=== PATIENT | female | born 1955 | race Caucasian/White ===

== ENCOUNTER 2025-02-28 13:43 | Outpatient (REF) | payer OTHER, SELFPAY ==
[2025-02-28 17:37] LABS: MANUAL DIFF FLAG NO
[2025-02-28 17:48] LABS: Hematocrit 41.4 % (37.0-47.0); Hemoglobin 13.8 g/dl (12.0-16.0); Imm Gran Abs Auto 0.04 X10*3/uL (0.00-0.03); Imm Gran Pct Auto 0.4 % (0.0-0.4); Lymphocytes Absolute Auto 2.1 X10*3/uL (1.2-4.9); Mean Corpuscular HGB Conc 33.3 g/dl (31.0-35.0); Mean Corpuscular Hemoglobin 30.9 pg (27.0-33.0); Mean Corpuscular Volume 92.6 fL (80.0-98.0); NRBC Abs Auto 0.000 X10*3/uL (0.0-0.012); NRBC Pct Auto 0.0 /100WBC (0.0-0.2); Platelet Count 319 X10*3/uL (160-400); Red Blood Count 4.47 X10*6/uL (4.20-5.50); White Blood Count 9.1 X10*3/uL (4.8-10.8)
[2025-02-28 18:05] LABS: Hemoglobin A1C 152.4032 umol/L
[2025-02-28 18:25] LABS: Alanine Aminotransferase 27 U/L (0-31); Albumin Level 4.5 g/dL (3.5-5.0); Alkaline Phosphatase 103 U/L (39-117); Anion Gap 14 (12-20); Aspartate Amino Transferase 38 U/L (5-31); Blood Urea Nitrogen 14 mg/dL (9-16); Calcium 9.6 mg/dL (8.4-10.2); Carbon Dioxide 27 mmol/L (22-29); Chloride 105 mmol/L (96-108); Cholesterol 272 mg/dL (<200); Estimated Glomerular Filt Rate > 60; HDL Cholesterol 52 mg/dL (>40); Iron 76 mcg/dL (30-160); Percent Iron Saturation 26 % (15-50); Potassium 4.5 mmol/L (3.3-5.1); Sodium 141 mmol/L (135-145); Total Iron Binding Capacity 294 mcg/dL (228-428); Total Protein 7.9 g/dL (6.5-8.0); Triglycerides 224 mg/dL (<150); Unsaturated Iron Binding 218 ug/dL
== END 2025-02-28 13:44 | disposition home or self-care (01) ==
LOC: HO.WFDLDS 13:43
PROVIDERS: PCP Internal Medicine; Visit Provider Internal Medicine
DX: K21.9 Gastro-esophageal reflux disease without esophagitis (principal); E78.5 Hyperlipidemia, unspecified; M19.90 Unspecified osteoarthritis, unspecified site; N64.4 Mastodynia; M10.9 Gout, unspecified; R35.89 Other polyuria
CPT/HCPCS: 36415; 80053; 80061; 83036; 83540; 84443; 85025; 96127

== ENCOUNTER 2025-02-28 13:43 | Outpatient (AMB) | payer OTHER, SELFPAY ==
--- NOTE | 2025-02-28 14:15 | MHC.PC.OV ---
Vital Signs 02/28/25 14:18 Height 5 ft 3.39 in Weight 220 lb 4 oz BMI 38.5 BP 136/70 Blood Pressure Location Rt brachial Position Sitting Respiration 14 Pulse 67 Pulse Source Pulse Oximeter Temp 98.6 F Temp Source Oral Pulse Oximetry (%) 97 Oxygen Delivery Method Room Air Intake Visit Reasons: CPE/mammogram referral/colonoscopy Intake Note: New patient visit. Hasnt had a pcp since the pandemic. 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 Allergies atorvastatin (From Lipitor) Allergy (Severe, Verified 02/28/25 14:22) leg cramps quintana (cherries) Allergy (Severe, Verified 02/28/25 14:22) throat closed codeine Allergy (Mild, Verified 02/28/25 14:22) feels like a robot Tobacco use date assessed: 02/28/25 Fall risk assessment: No Falls in past year Last assessed Fall Risk: 02/28/25 Dental Screening Dental Screen Date: 02/28/25 Did you have a dental visit in the last 12 months?: Yes Did you have a dental problem in the last 6 months where you did not have access to dental care?: No Was dental information given to patient?: Patient has dentist HPI HPI Comments History of Present Illness Details The patient is a 69 year old female with a past medical history of hyperlipidemia, GERD, osteoarthritis, rosacea presenting to [facility] care. She has not been regularly going to the doctor since COVID pandemic. Previous patient of Dr Marco OLVERA-Previously on statin therapy. Now taking supplement History of allergy/anaphylaxis-she has no epi-pen at home [facility] History of gout-unsure of what she has used to treat in the past. No episode for the past 3 years. Left breast pain. No recent change. Intermittently hurts. Does not feel a mass. Has had call backs in the past on that particular breast. GI: history of GERD. Has had endoscopy in the past. Wants to consider repeat Family history of [facility]-dad. She requests cardiology consult. No chest pain. Due for mammogram Due for colonoscopy ROS see HPI PHYSICAL EXAM: GENERAL: Alert and oriented x 3. NAD EYES: EOMI. Anicteric. HENT: Moist mucous membranes. No scleral icterus. No cervical lymphadenopathy. LUNGS: Clear to auscultation bilaterally. CARDIOVASCULAR: Regular rate and rhythm. No murmur. No JVD. ABDOMEN: Soft, non-tender +bs EXTREMITIES: No edema. Non-tender. SKIN: No rashes or lesions. Warm. NEUROLOGIC: No focal neurological deficits. CN II-XII grossly intact PSYCHIATRIC: Cooperative. Appropriate mood and affect FORMERLY [facility], [facility]1983 Surgical History History of throat surgery H/O shoulder surgery History of carpal tunnel surgery of right wrist Hx of tonsillectomy Family History Mother HTN (hypertension) with goal to be determined Cardiovascular disease Maternal Grandmother HTN (hypertension) with goal to be determined Cardiovascular disease Paternal Grandmother HTN (hypertension) with goal to be determined Cardiovascular disease H/O cancer of gall bladder Father High cholesterol Diabetes Cardiovascular disease Maternal Grandfather Cardiovascular disease Alcoholism Paternal Grandfather Cardiovascular disease Lung cancer Other Ovarian cancer Substance abuse Social History Housing: House Alcohol intake: never Patient Tobacco Use Status: Never used Tobacco e-Cigarette/Vaping Use: Never Used Second Hand Smoke Exposure: No service: No Current occupational status: retired Cognitive needs: No Hearing needs: No Vision needs: Yes Questionnaire PHQ-9 Over the last 2 weeks, how often have you been bothered by any of the following problems? 1. Little interest or pleasure in doing things: not at all 2. Feeling down, depressed, or hopeless: not at all 3. Trouble falling or staying asleep, or sleeping too much: not at all 4. Feeling tired or having little energy: not at all 5. Poor appetite or overeating: not at all 6. Feeling bad about yourself - or that you are a failure or have let yourself or your family down: not at all 7. Trouble concentrating on things, such as reading the newspaper or watching television: not at all 8. Moving or speaking so slowly that other people could have noticed. Or the opposite - being so fidgety or restless that you have been moving around a lot more than usual: not at all 9. Thoughts that you would be better off or of hurting yourself in some way: not at all Total score: 0 Depression Screening Interpretation: Negative Depression Screening Done: Yes 15479 - PHQ-9 Billing: Yes Source: Developed by Drs. Rocco Serrano, Yoly Maynard, Abdoul Olea and colleagues, with an educational lynn from [employer] Thrive Questionnaire Date Thrive assessed: 02/28/25 I am a: Patient What is your living situation today?: I have a steady place to live Within the past 12 months, did the food you bought not last and you didn't have the money to get more?: Never true Within the past 12 months, did you worry whether your food would run out before you got money to buy more?: Never true Do you have trouble paying for medicines?: No Do you have trouble getting transportation to medical appointments?: No Do you have trouble paying your heating and electricity bill?: No Do you have trouble taking care of your child, family member or friend?: No Do you have trouble with day-to-day activities such as bathing, preparing meals, shopping, managing finances, etc.?: No Are you currently unemployed and looking for a job?: No Are you interested in more education?: No Please select the resources that you would like help with: None Currently or been in a relationship where the following occur: No concerns reported THRIVE Score: 0 AUDIT C Alcohol Use Questionnaire (AUDIT-C) 1. How often do you have a drink containing alcohol?: Never 3. How often do you have six or more drinks on one occasion?: Never Total Score: 0 JENNI-7 AMB Questionnaire JENNI-7 Date JENNI - 7 assessed: 02/28/25 Feeling nervous, anxious, or on edge: 0 = Not at all Not being able to stop or control worryin = Not at all Worrying too much about different things: 0 = Not at all Trouble relaxin = Not at all Being so restless that it is hard to sit still: 0 = Not at all Becoming easily annoyed or irritable: 0 = Not at all Feeling afraid as if something awful might happen: 0 = Not at all Total JENNI-7 score (0-4 normal; 5-9 mild; 10-14 moderate; 15-21 severe): 0 Source: Developed by Yoly Mclean.W. Caesar, Abdoul Olea and colleagues, with an educational lynn from [employer] JENNI-7 Assessment Billing JENNI-7 Assessment Tool: JENNI-7 Assessment 90809 Physical exam (Primary Care) Vital Signs: Last Vital Signs Temp 98.6 F 02/28/25 14:18 Pulse 67 02/28/25 14:18 Resp 14 02/28/25 14:18 BP 136/70 02/28/25 14:18 Pulse Ox 97 02/28/25 14:18 Oxygen Delivery Method Room Air 02/28/25 14:18 BMI result Body Mass Index 38.5 Tobacco/Smoking Status: Tobacco use Status Tobacco use date assessed 02/28/25 02/28/25 14:28 Patient Tobacco Use Status Never used Tobacco 02/28/25 14:39 e-Cigarette/Vaping Use Never Used 02/28/25 14:39 PHQ-9: PHQ-9 Score PHQ-9: Total score 0 02/28/25 14:28 Depression Screening Interpretation: Negative Thrive Assessment: Date of Thrive Assessment Date Thrive assessed 02/28/25 02/28/25 14:28 Currently or been in a relationship where the following occur: No concerns reported Coding Level of Care Code New Pt Level 4 (04638) Complex EM visit Add On G2211 Diagnoses Hyperlipidemia, unspecified hyperlipidemia type E78.5 Hyperlipidemia type: unspecified Gastroesophageal reflux disease, unspecified whether esophagitis present K21.9 Esophagitis presence: esophagitis presence not specified Breast pain, left N64.4 Osteoarthritis, unspecified osteoarthritis type, unspecified site M19.90 Osteoarthritis location: unspecified site Osteoarthritis type: unspecified Additional Codes JENNI-7 Assessment Billing - JENNI-7 Assessment Tool: JENNI-7 Assessment 18547 ([id number]) PHQ-9 - 18345 - PHQ-9 Billing: Yes ([id number]) Assessment & Plan Assessment & Plan (1) Hyperlipidemia: Code(s): E78.5 - Hyperlipidemia, unspecified Category: Medical Qualifiers: Hyperlipidemia type: unspecified Qualified Code(s): E78.5 - Hyperlipidemia, unspecified (2) GERD (gastroesophageal reflux disease): Code(s): K21.9 - Gastro-esophageal reflux disease without esophagitis Category: Medical Qualifiers: Esophagitis presence: esophagitis presence not specified Qualified Code(s): K21.9 - Gastro-esophageal reflux disease without esophagitis (3) Breast pain, left: Code(s): N64.4 - Mastodynia Category: Medical (4) Osteoarthritis: Code(s): M19.90 - Unspecified osteoarthritis, unspecified site Category: Medical Qualifiers: Osteoarthritis location: unspecified site Osteoarthritis type: unspecified Qualified Code(s): M19.90 - Unspecified osteoarthritis, unspecified site Plan 69 year old to establish care Past medical, surgical, social reviewed Breast pain-screening b/l diagnostic left and u/s ordered referral GI for endoscopy, at least colonoscopy labs ordered EKG normal. patient would still like to see cardiology Orders: Orders MM tomosynthesis screening BI 02/28/25 Z12.31 - Encounter for screening mammogram for malignant neoplasm of breast breast LT complete 02/28/25 N64.4 - Mastodynia TSH reflex Free T4 02/28/25 E78.5 - Hyperlipidemia, unspecified, K21.9 - Gastro-esophageal reflux disease without esophagitis, M10.9 - Gout, unspecified, M19.90 - Unspecified osteoarthritis, unspecified site, R35.89 - Other polyuria Hemoglobin A1c 02/28/25 E78.5 - Hyperlipidemia, unspecified, K21.9 - Gastro-esophageal reflux disease without esophagitis, M10.9 - Gout, unspecified, M19.90 - Unspecified osteoarthritis, unspecified site, R35.89 - Other polyuria ECG 12 lead EKG 02/28/25 Z82.49 - Family history of ischemic heart disease and other diseases of the circulatory system MM diagnostic mammo unilat LT 02/28/25 N64.4 - Mastodynia Complete Blood Count Auto Diff 02/28/25 E78.5 - Hyperlipidemia, unspecified, K21.9 - Gastro-esophageal reflux disease without esophagitis, M10.9 - Gout, unspecified, M19.90 - Unspecified osteoarthritis, unspecified site, R35.89 - Other polyuria Comprehensive Met. Panel 02/28/25 E78.5 - Hyperlipidemia, unspecified, K21.9 - Gastro-esophageal reflux disease without esophagitis, M10.9 - Gout, unspecified, M19.90 - Unspecified osteoarthritis, unspecified site, R35.89 - Other polyuria Lipid Panel 09/02/25 E78.5 - Hyperlipidemia, unspecified, K21.9 - Gastro-esophageal reflux disease without esophagitis, M10.9 - Gout, unspecified, M19.90 - Unspecified osteoarthritis, unspecified site, R35.89 - Other polyuria IRON PROFILE 02/28/25 E78.5 - Hyperlipidemia, unspecified, K21.9 - Gastro-esophageal reflux disease without esophagitis, M10.9 - Gout, unspecified, M19.90 - Unspecified osteoarthritis, unspecified site, R35.89 - Other polyuria Referrals Cardiology Referral Z82.49 - Family history of ischemic heart disease and other diseases of the circulatory system Gastroenterology Referral Z12.11 - Encounter for screening for malignant neoplasm of colon Medications: New prednisone Take 2 tablets oral daily as needed for gout. When symptoms subside take 1 tab oral daily for 3 days then stop 40 mg (2 x 20 mg) PO DAILY 30 tabs 1RF epinephrine (EpiPen 2-Kvng) for 2 doses 0.3 mg (0.3 mL) IM Q10M PRN 2 ea 1RF anaphylaxis
[2025-02-28 14:18] VITALS: BP 136/70; PULSE 67; RESP 14; TEMP 37; O2SAT 97; BMI 38.5
== END 2025-02-28 15:13 | disposition home or self-care (01) ==
LOC: HO.HMCFM 13:44
PROVIDERS: PCP Internal Medicine; Visit Provider Internal Medicine
DX: E78.5 Hyperlipidemia, unspecified (principal); K21.9 Gastro-esophageal reflux disease without esophagitis; N64.4 Mastodynia; M19.90 Unspecified osteoarthritis, unspecified site

== ENCOUNTER 2025-05-24 10:35 | Outpatient (AMB) | payer OTHER, SELFPAY ==
[2025-05-24 10:41] VITALS: BP 116/62; PULSE 56; BMI 38.3
--- NOTE | 2025-05-24 10:41 | A.OFFVIS_ITS ---
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/ Family history of ischemic heart diseas Allergies atorvastatin (From Lipitor) Allergy (Severe, Verified 02/28/25 14:22) leg cramps quintana (cherries) Allergy (Severe, Verified 02/28/25 14:22) throat closed codeine Allergy (Mild, Verified 02/28/25 14:22) feels like a robot Medication List - Last Reconciled 05/24/25 by Damon Vasquez MD acetaminophen (Tylenol) 325 mg PO QID PRN berberine chloride mg PO cholecalciferol (vitamin D3) PO [elderberry gummies PO] epinephrine (EpiPen 2-Kvng) 0.3 mg (0.3 mL) IM Q10M PRN [magnesium glyconate 400 PO] multivitamin 1 tab PO DAILY [omega 3 concentrated blend PO] prednisone 40 mg PO DAILY PRN HPI Comments Details: The patient is a 69 year old individual presenting for a cardiovascular evaluation due to a family history of heart disease. The patient's father at age 91 with a history of a bad heart, having had silent heart attacks and a major heart attack at age 81. Additionally, the patient's 73-year-old sister is on heart medication, while the patient takes none. The patient reports sporadic episodes of chest discomfort, described as a feeling of a cement block sitting on my chest, which the patient attributes to possible anxiety. These episodes are random, occurring with and without activity, such as vacuuming. The patient manages these symptoms by taking two baby aspirin and lying down, after which the discomfort resolves, and notes it has not occurred for a while. The patient denies any previously known heart problems and has had a chemical stress test in the past. [facility] Surgical History History of throat surgery H/O shoulder surgery History of carpal tunnel surgery of right wrist Hx of tonsillectomy Family History Mother HTN (hypertension) with goal to be determined Cardiovascular disease Maternal Grandmother HTN (hypertension) with goal to be determined Cardiovascular disease Paternal Grandmother HTN (hypertension) with goal to be determined Cardiovascular disease H/O cancer of gall bladder Father High cholesterol Diabetes Cardiovascular disease Maternal Grandfather Cardiovascular disease Alcoholism Paternal Grandfather Cardiovascular disease Lung cancer Other Ovarian cancer Substance abuse Social History Housing: House Alcohol intake: never Patient Tobacco Use Status: Never used Tobacco e-Cigarette/Vaping Use: Never Used Second Hand Smoke Exposure: No service: No Current occupational status: retired Cognitive needs: No Hearing needs: No Vision needs: Yes Review of Systems Const Denies weakness ENT Denies dizziness Card Denies chest pain, Denies chest pain with activity, Denies syncope, Denies rapid heart rate, Denies pedal edema, Denies edema, Denies leg edema, Denies lightheadedness, Denies palpitations, Denies dyspnea, Denies dyspnea on exertion and Denies orthopnea Resp Denies cough, Denies dyspnea and Denies dyspnea on exertion GI Denies hematochezia and Denies change in stool character Musc Denies abnormal gait, Denies muscle cramps, Denies muscle weakness, Denies numbness, Denies radiating pain into limb and Denies tingling Neuro Denies abnormal gait, Denies dizziness, Denies syncope, Denies numbness, Denies tingling and Denies weakness Endo Denies palpitations Physical Exam Vital Signs: Last Vital Signs Pulse 56 05/24/25 10:41 BP 116/62 05/24/25 10:41 BMI result Body Mass Index 38.3 Const General: comfortable and no acute distress Orientation/consciousness: patient oriented x3 HEENT Other: Unremarkable Head: Yes normal to inspection Neck Neck: Yes normal visual inspection Chest Chest palpation & inspection: normal inspection of the chest Resp Auscultation: clear to auscultation bilaterally Cardio Palpation: normal PMI Heart sounds: S1 normal heart sound present, S2 normal heart sound present, no gallops, no murmurs and no rubs GI Palpation (GI): Soft to palpation Back/Spine/Pelvis Other: unremarkable Skin General skin exam: no rashes or lesions noted Neuro General: patient oriented x3 Extrem General: Yes normal to inspection Psych Mental Status: mental status grossly normal Assessment & Plan Assessment & Plan (1) Precordial chest pain: Code(s): R07.2 - Precordial pain Category: Medical (2) Family history of heart disease: Code(s): Z82.49 - Family history of ischemic heart disease and other diseases of the circulatory system Category: Medical Plan 1. Chest pain, etiology uncertain The patient reports sporadic chest pressure with a significant family history of heart disease. The differential diagnosis includes musculoskeletal pain versus angina. Of note, this pain has not happened in the recent past. A cardiac workup is warranted to rule out an ischemic etiology. Plan: An echocardiogram will be ordered to evaluate cardiac structure and function. A stress test will be ordered to evaluate for ischemia. A treadmill stress test is preferred over a chemical stress test to better mimic physiological conditions. Follow-up will be arranged to discuss the results of the diagnostic tests. Discussion Notes I discussed with the patient the plan for a cardiac evaluation, given the presenting symptoms of chest pain and family history. I explained that the cause of the chest pain is uncertain, potentially being muscular or angina. I recommended an echocardiogram to assess heart pumping function and a stress test. We discussed that a treadmill stress test is preferable to a chemical one, as it better simulates real-life activity. The patient agreed to try the treadmill modality, and I advised the patient to practice walking in preparation for the test, which will be scheduled in about four to six weeks. Patient was informed and verbally consented to the use of an ambient scribe for clinic note documentation during this visit. Orders: Orders NM cardiolite stress test Today Damon Vasquez MD R07.2 - Precordial pain CA echo transthoracic complete Today Damon Vasquez MD R07.2 - Precordial pain CA stress test Today Damon Vasquez MD R07.2 - Precordial pain Medications: Changed From prednisone Take 2 tablets oral daily as needed for gout. When symptoms subside take 1 tab oral daily for 3 days then stop 40 mg (2 x 20 mg) PO DAILY 30 tabs 1RF To prednisone Take 2 tablets oral daily as needed for gout. When symptoms subside take 1 tab oral daily for 3 days then stop 40 mg PO DAILY PRN Radha Reinoso MD Patient Instructions: - We will schedule you for a heart ultrasound (echocardiogram) and a stress test. - The stress test will involve walking on a treadmill. - Please try to practice walking at home to prepare for the stress test. - If you cannot complete the walking test, we will perform a chemical stress test instead. Coding Level of Care Code New Pt Level 4 (14613) Complex visit Add On G2211 Diagnoses Precordial chest pain R07.2 Family history of heart disease Z82.49
== END 2025-05-24 11:06 | disposition home or self-care (01) ==
LOC: HO.HCS 10:36
PROVIDERS: PCP Internal Medicine; Visit Provider Internal Medicine
DX: R07.2 Precordial pain (principal); Z82.49 Family history of ischemic heart disease and other diseases of the circulatory system
CPT/HCPCS: 99204

== ENCOUNTER 2025-06-06 09:31 | Outpatient (AMB) | payer OTHER, SELFPAY ==
--- NOTE | 2025-06-06 09:35 | MHC.OFFVIS ---
Vital Signs 06/06/25 09:36 Height 5 ft 3 in Weight 219 lb BMI 38.8 BP 122/66 Blood Pressure Location Rt brachial Position Sitting Pulse 72 Intake Visit Reasons: colo screen, pt did not want to go to [facility] 2014 Intake Note: New patient in office today for colonoscopy screening. CC: Patient reports hearburn and states that she last had EGD and colonoscopy with Dr. Stewart. She would like to have EGD done at the same time. Steam Hoist Operator Required: No Accompanied by: Self / Same As Patient Allergies atorvastatin (From Lipitor) Allergy (Severe, Verified 06/06/25 09:43) leg cramps quintana (cherries) Allergy (Severe, Verified 06/06/25 09:43) throat closed codeine Allergy (Mild, Verified 06/06/25 09:43) feels like a robot HPI HPI colo screen, pt did not want to go to [facility] 2015: Details: 69-year-old female here for preprocedural meeting to discuss a screening colonoscopy. She is referred by Radha Reinoso. PMX High cholesterol Gout Osteoarthritis generalized GERD CP BEING INVESTIGATED BY CARDIOLOGY AND HAS PENDING STRESS AND ECHO * SURGICAL HISTORY Throat surgery -- VOCAL CORD POLYPS Shoulder surgery - ROTATOR CUFF REPAIR RT Carpal tunnel right wrist Tonsillectomy D & C Tubal ligation * ALLERGIES Atorvastatin Codeine Quintana * [employer] LABS: Laboratory Tests 02/28/25 15:06 WBC 9.1 Hgb 13.8 Hct 41.4 Plt Count 319 Estimated GFR > 60 Hemoglobin A1c % 6.1 H Total Bilirubin 0.9 AST 38 H ALT 27 Alkaline Phosphatase 103 TSH 2.26 TODAY'S VISIT Prior colonoscopy: She has a hx of polyps with Dr. Stewart but has been overdue for scope r/t COVID etc - she thinks her last was in 2014. Bowel or upper GI problems: She has GERD WELL controlled if she watches her diet and occasionally uses OTC Prilosec, no bowel problems except a long hx of roids with occasional mild bleeding. Cardiac or respiratory problems: Being investigated for CP by cardology no breathing problems. Anesthesia sedation problems: She had had trouble waking up from general anesthesia many years ago and had to be hospitalized over night. Infectious disease problems: No Family history of colon cancer or polyps: [facility] has had polyps with Dr. Stewart, FHX is unknown. [facility] Medical History (Updated 06/06/25 @ 10:33 by BENJAMIN Wolf) Colon cancer screening Surgical History (Updated 06/06/25 @ 10:35 by BENJAMIN Wolf) H/O dilation and curettage S/P right rotator cuff repair History of vocal cord polypectomy History of tubal ligation H/O endoscopy H/O colonoscopy History of carpal tunnel surgery of right wrist Hx of tonsillectomy Family History Mother HTN (hypertension) with goal to be determined Cardiovascular disease Maternal Grandmother HTN (hypertension) with goal to be determined Cardiovascular disease Paternal Grandmother HTN (hypertension) with goal to be determined Cardiovascular disease H/O cancer of gall bladder Father High cholesterol Diabetes Cardiovascular disease Maternal Grandfather Cardiovascular disease Alcoholism Paternal Grandfather Cardiovascular disease Lung cancer Other Ovarian cancer Substance abuse Social History Housing: House Alcohol intake: never Patient Tobacco Use Status: Never used Tobacco e-Cigarette/Vaping Use: Never Used Second Hand Smoke Exposure: No service: No Current occupational status: retired Cognitive needs: No Hearing needs: No Vision needs: Yes Review of Systems Const Denies fatigue, Denies fever(s), Denies night sweats, Denies poor appetite and Denies weight loss Eyes Details: glasses Reports requires corrective lenses ENT Reports Normal hearing present, Denies dental pain, Denies dysphagia, Denies hearing loss, Denies mouth pain, Denies odynophagia, Denies throat swelling, Denies tongue swelling and Reports other (Dentition adequate) GI Details: Denies abdominal pain, Denies melena, Denies bloating, Denies hematochezia, Denies constipation, Denies GI cramping, Denies dysphagia, Denies excessive flatus, Denies early satiety, Denies heartburn, Denies diarrhea, Denies nausea, Denies odynophagia, Denies vomiting and Denies hematemesis Skin/Breast Denies pruritus, Denies lesions, Denies rash and Denies jaundice Neuro Reports Normal hearing present and Denies Abnormal speech present Endo Denies fatigue Aller/Immun Denies throat swelling and Denies tongue swelling Physical Exam Vital Signs: Last Vital Signs Pulse 72 06/06/25 09:36 BP 122/66 06/06/25 09:36 BMI result Body Mass Index 38.8 Const General: cooperative, no acute distress, well developed and well groomed Nutritional Appearance: well nourished and obese morbidly obese Orientation/consciousness: oriented to person, oriented to place and oriented to time Limitations: No language barrier HEENT Head: Yes normocephalic and Yes atraumatic Eyes General: appearance normal, both eyes and all related structures Pupils: Equal, round and reactive pupils present Neck Neck: Yes normal visual inspection and Yes no lymphadenopathy Thyroid: Thyroid normal Resp Effort & Inspection: normal respiratory effort and able to speak in complete sentences Auscultation: clear to auscultation bilaterally Cardio Rate: regular rate Rhythm: regular rhythm Heart sounds: Normal, physiologic split S2 sound present Peripheral pulses: radial pulses present and posterior tibial pulses present GI Inspection: No distended, Yes Abdominal panniculus present, Yes obesity and Yes striae Palpation (GI): Soft to palpation, nontender, no guarding, not rigid and No hepatosplenomegaly present Percussion: Yes normal to percussion Auscultation: normal bowel sounds Rectal Exam - Female: deferred Skin General skin exam: no rashes or lesions noted, turgor normal, skin not dry, no jaundice, No spider nevi and no striae Rashes: no rashes Nails: normal Neuro General: oriented to person, oriented to place and oriented to time Cranial nerves: Yes Equal, round and reactive pupils present and Yes Normal hearing present Speech: No Abnormal speech present Extrem General: Yes normal to inspection, No clubbing, No cyanosis and No edema Psych Appearance: grossly normal and well kempt Mental Status: mental status grossly normal Speech and movement: Normal speech and movement present Affect: normal affect Attitude: cooperative Thought process: Normal thought process present and not confabulating Thought content: Normal thought content present Insight: Good insight present (Psych) Judgement: Good judgement present (Psych) Assessment & Plan Assessment & Plan (1) Pre-op examination: Code(s): Z01.818 - Encounter for other preprocedural examination Category: Medical (2) Tubular adenoma of colon: Comment: [address] STEWART, details lost a history Code(s): D12.6 - Benign neoplasm of colon, unspecified Category: Medical (3) Precordial chest pain: Code(s): R07.2 - Precordial pain Category: Medical Plan Prior colonoscopy: She has a hx of polyps with Dr. Stewart but has been overdue for scope r/t COVID etc - she thinks her last was in 2014. Bowel or upper GI problems: She has GERD WELL controlled if she watches her diet and occasionally uses OTC Prilosec, no bowel problems except a long hx of roids with occasional mild bleeding. Cardiac or respiratory problems: Being investigated for CP by cardology no breathing problems. Coordinate with cardiology; send note to forming roll operator to confirm fitness for sedation following scheduled echocardiogram and stress test on 08/24; schedule procedure after clearance. Anesthesia sedation problems: She had had trouble waking up from general anesthesia many years ago and had to be hospitalized over night. History of prolonged emergence after tubal ligation in 1990; no issues with more recent procedures. Infectious disease problems: No Family history of colon cancer or polyps: [facility] has had polyps with Dr. Stewart, FHX is unknown. Orders: Referrals GI Procedure Notification Z01.818 - Encounter for other preprocedural examination Medications: New peg 3350-electrolytes 236-22.74-6.74 -5.86 gram (Golytely) until fecal effluent is clear; do not exceed a total volume of 2,000 mL 240 mL PO Q10M 4,000 mL 0RF 1 day Z12.11 - Encounter for screening for malignant neoplasm of colon bisacodyl (Dulcolax (bisacodyl)) 10 mg (2 x 5 mg) PO BEDTIME 4 tabs 0RF 2 days Coding Level of Care Code New Pt Level 3 (80320) Diagnoses Pre-op examination Z01.818 Tubular adenoma of colon D12.6 Precordial chest pain R07.2
[2025-06-06 09:36] VITALS: BP 122/66; PULSE 72; BMI 38.8
== END 2025-06-06 10:18 | disposition home or self-care (01) ==
LOC: HO.HGI 09:32
PROVIDERS: PCP Internal Medicine; Visit Provider Nurse Practitioner
DX: Z01.818 Encounter for other preprocedural examination (principal); Z12.11 Encounter for screening for malignant neoplasm of colon; Z86.0101 Personal history of adenomatous and serrated colon polyps; R07.2 Precordial pain
CPT/HCPCS: 99203

== ENCOUNTER 2025-06-20 11:13 | Outpatient (REF) | payer MEDICARE, SELFPAY ==
--- NOTE | ~2025-06-20 | US_ITS ---
EXAMINATION(S): 1. MM DIAGNOSTIC DIGITAL BREAST TOMOSYNTHESIS, BILATERAL 2. TARGETED ULTRASOUND OF THE LEFT BREAST CLINICAL INFORMATION: Left breast tenderness. COMPARISON: Comparison made to multiple prior, most recent November 12, 2022 from [facility], and most remote March 20, 2017. TECHNIQUE: Digital breast tomosynthesis is performed in both the mediolateral oblique and craniocaudal views along with computer-aided detection (CAD). Synthesized 2D images are generated from the tomosynthesis. A triangular skin marker was placed at the location of the focal pain as indicated by the patient in the upper outer quadrant. FINDINGS: BREAST COMPOSITION: There are scattered areas of fibroglandular density. RIGHT BREAST: No significant masses, suspicious calcifications or other abnormalities are seen. LEFT BREAST: No significant masses, suspicious calcifications or other abnormalities are seen. In particular, no suspicious findings adjacent to the triangular skin marker in the upper outer quadrant. US/US Breast LT Limited Mamm Only IMPRESSION: RIGHT BREAST: Negative, no mammographic evidence of malignancy. Normal interval follow-up is recommended in 12 months. LEFT BREAST: Negative, no evidence of malignancy. Clinical follow-up is recommended for the concern of focal pain. Otherwise, normal interval follow-up mammogram is recommended in 12 months. ASSESSMENT: BI-RADS: Category 1: Negative RECOMMENDATION: 1. Patient should be managed based on the clinical impression. 2. Otherwise, routine annual screening mammography. Results were provided to the patient at time of visit by the technologist. This patient's information was entered into a reminder system with a target due date for their next mammogram. Electronically signed by: Patricia Daily MD 06/20/2025 11:58 AM [facility]
--- OUTSIDE RECORDS SUMMARY | 2025-06-20 12:36 | XMS_ITS | Patient Health Record ---
Author Organization [facility] [address] Address [address] [place] [address] Care Team Providers Care Master Black Belt Name Role Phone FLIP RUSSELL Unavailable [phone] Allergies Allergen (clinical drug ingredient) Drug/Non Drug Allergy documented on EMR Reaction Allergy Type Onset Date Status Brianne anaphylaxis Drug Allergy Activ e Codeine Phosphate Unknown Drug Allergy Active Reason For Referral No Information Medications Medication SIG (Take, Route, Frequency, Duration) Notes Start Date End Date Status Tylenol Arthritis Pain Active Elderberry gummies 2 a day Act dianne CBD [place] cbd oil Active Biofreeze Active Simvastatin 20 MG Tablet 1 tablet in the evening Orally Once a day; Duration: 90 day(s) 01/28/2021 Active Vitamin B12 100 MCG Tablet as directed Orally Active Vitamin C 250 MG Tablet 1 tablet Orally Once a day Active Vitamin D 25 MCG (1000 UT) Tablet 1 tablet Orally Once a day Active Magnesium 400 MG Capsule 1 tablet with a meal Orally Once a day leg cramps Active Immunizations Vaccine Route Administration Date Status Comme nts influenza IM Intramuscular 04/11/2022 Administered Tdap IM Intramuscular 04/11/2022 Administered Social History Tobacco Use: Social History Observation Description Date Details (start date - stop date) Never Smoker NA - NA Social History Tobacco Use: Social Info Question Answer Notes Tobacco Use/Smoking Are you a nonsmoker Problems Problem Type SNOMED Code ICD Code Onset Dates Problem Status W/U Status Risk Notes Problem Hyperlipidemia (94334638) Hyperlipidemia, unspecified (E78.5) Active confirmed Problem Adult health examination (278687045) Encounter for general adult medical examination without abnormal findings (Z00.00) Active confirmed Problem Colon cancer screening (846080426) Colon cancer screening (Z12.11) Active confirmed Problem Depressive disorder (disorder) (18363881) Depression, unspecified depression type (F32.9) Active confirmed Problem Gout (65513412) Gout, unspecified cause, unspecified chronicity, unspecified site (M10.9) Active confirmed Problem Vitamin D deficiency (24304470) Vitamin D deficiency (E55.9) Active confirmed Problem Obesity (410220452) Obesity (BMI 30-39.9) (E66.9) Active confirmed Problem Obese class II (696392079925958) BMI 37.0-37.9, adult (Z68.37) Active confirmed Encounters Encounter Location Date Provider Diagnosis [facility] [address] [place] [address] 09/05/2024 FLIP RUSSELL [facility] [address] [place] [address] 09/12/2024 FLIP RUSSELL [facility] [address] [facility] [address] [place] [address] 10/18/2024 FLIP RUSSELL Plan Of Treatment Pending Test Test Name Order Date Mammogram 01/28/2021 Mammogram 08/12/2021 Colonoscopy 01/28/2021 Bone Density 01/28/2021 Bone Density 03/27/2022 25OH VITAMIN D 12/20/2020 CBC (COMPLETE BLOOD COUNT) 12/20/2020 COMPREHENSIVE METABOLIC PANEL 12/20/2020 HEMOGLOBIN A1C 12/20/2020 LIPID PANEL 12/20/2020 TSH 12/20/2020 LIPID PANEL, STANDARD 01/28/2021 LIPID PANEL, STANDARD 03/27/2022 LIPID PANEL, STANDARD 10/06/2022 COMPREHENSIVE METABOLIC PANEL 03/27/2022 COMPREHENSIVE METABOLIC PANEL 01/28/2021 URIC ACID 01/28/2021 CBC (INCLUDES DIFF/PLT) 03/27/2022 HEMOGLOBIN A1c 10/06/2022 HEMOGLOBIN A1c 03/27/2022 INSULIN 03/27/2022 T4, FREE 03/27/2022 TSH 03/27/2022 VITAMIN D,25-OH,TOTAL,IA 10/06/2022 VITAMIN D,25-OH,TOTAL,IA 03/27/2022 COMPLETE URINALYSIS 12/20/2020 SARS CoV 2 RNA(COVID 19), QUALITATIVE NA AT 02/14/2022 Insurance Providers Payer Name Payer Address Payer Phone Subscriber Number Group Number Insured Name Patient Relationship to Insured Coverage Start Date Coverage End Date [facility] [address] [place] [address] [phone] [id number] Kathy Pace Self - patient is the insured Medicare Part B [id number] [address] [place] [address] [id number] Kathy Pace Self - patient is the insured 9 Medications Administered Medication Instructions Date of Administration Dosage Notes MICC B12 INJECTION 03/19/2022 1 mL Lot # [id number] Medical (General) History Medical History History ICD Code high cholesterol Gout Hemorrhoids Depression arthritis Right fractured knee cap Surgical History Surgery Date(Month/Year) carpal tunnel release - right wrist 04/30 015 right shoulder surgery 11/2015 Hospitalization History Reason Date(Month/Year) 2x
--- OUTSIDE RECORDS SUMMARY | 2025-06-20 12:36 | XMS_ITS | Patient Health Record ---
Author Organization [facility] Address [address] [place] [address] Care Team Providers Care Plug And Mold Finisher Name Role Phone Radha Reinoso M.D. Primary Care Provider Rocco Murillo [phone] Allergies Allergen (clinical drug ingredient) Drug/Non Drug Allergy documented on EMR Reaction Allergy Type Onset Date Status cherries (uncoded) Unknown Allergy A ctive codeine Codeine Sulfate Unknown Drug Allergy A ctive Reason For Referral No Information Medications Medication SIG (Take, Route, Frequency, Duration) Notes Start Date End Date Status CoQ-10 & Fish Oil Ac tive Aspir-81 81 MG Tablet Delayed Release 1 tablet Orally prn Activ e PriLOSEC OTC 20 MG Tablet Delayed Release 1 tablet Orally prn Activ e Calcium Active Vitamin D3 Active Multi Vitamin/Minerals Tablet Orally Active Simvastatin 10 MG Tablet 1 tablet in the evening Orally Once a day Active Magnesium 500 MG Tablet 1 tablet with a meal Orally Once a day Active Social History Social History Additional Details Category Social Info Options Details Miscellaneous: Marital status: Occupation: retired Section Notes: Nonsmoker; no sig alcohol Nonsmoker; no sig alcohol Nonsmoker; no sig alcohol Problems Problem Type SNOMED Code ICD Code Onset Dates Problem Status W/U Status Risk Notes Problem Benign neoplasm of colon (39975866) Colon adenoma (D12.6) Active confirmed Problem Mass of stomach (875857009) Gastric mass (K31.9) Active confirmed Plan Of Treatment Pending Test Test Name Order Date GI BIOPSY 05/04/2015 Future Test Test Name Order Date UPPER GI ENDOSCOPY 10/31/2014 COLONOSCOPY 10/31/2014 Next Appt Details Provider Name:Rocco Queen , 07/25/2025 10:10:00 AM, [address], [address], [place], [address], Insurance Providers Payer Name Payer Address Payer Phone Subscriber Number Group Number Insured Name Patient Relationship to Insured Coverage Start Date Coverage End Date [facility] [address] [address] [place] [id number] [phone] [id number] JOSHUA HERRERA Self - patient is the insured Medical (General) History Medical History History ICD Code Denies PA,DM,CVA,Lung disease,renal dise ase Hyperlipidemia Negative screening colonoscopy at age 48 -told of diverticulosis GERD--had an EGD at age 48-told of a hia luisa hernia She had abdominal ultrasound in 2010 that reported a fatty liver, but a liver profile and CBC in July 2014 was completely normal Upper endoscopy in April 2015 with the finding of a proximal submucosal gastric mass, with normal biopsies--she is being referred for endoscopic ultrasound of that; there was no esophagitis, Flores's, nor significant hiatal hernia---she underwent an EUS in 05/2015--benign cyst, incuding FNA cytology Colonoscopy in April 2015 with removal of a single small tubular adenoma, and the finding of some sigmoid diverticulosis and internal hemorrhoids Surgical History Surgery Date(Month/Year) tonsillectomy Left carpal tunnel Vocal cord polyps D&C BTL shoulder surgery/right
== END 2025-06-20 11:14 ==
LOC: HO.MAMMO 11:13
PROVIDERS: PCP Internal Medicine; Visit Provider Internal Medicine
DX: N64.4 Mastodynia (principal)
CPT/HCPCS: 76642; 77062; 77066

== ENCOUNTER → 2025-06-20 11:30 | Outpatient (BNV) | payer MEDICARE, SELFPAY | PROVIDERS: PCP Internal Medicine; Visit Provider Radiology Body Imaging | DX: N64.4 Mastodynia (principal) | CPT/HCPCS: 76642; 77066; G0279 ==